=== PATIENT | male | born 1975 | race Caucasian/White ===

== ENCOUNTER 2018-04-08 19:27 | Outpatient (CLI) | payer MEDICAID | END 2018-04-08 19:28 | disposition critical access hospital (66) | LOC: EMS 19:27 | PROVIDERS: ATTEND Surgery | DX: R41.82 Altered mental status, unspecified (principal); R53.1 Weakness; R53.83 Other fatigue | CPT/HCPCS: A0425; A0427 ==

== ENCOUNTER 2018-04-08 19:54 | Emergency (ER) | payer MEDICAID ==
--- NOTE | 2018-04-08 20:38 | ED Physician Documentation ---
PD HPI SYNCOPE - Stated complaint Stated Complaint: SYNCOPE - Chief complaint Chief Complaint: Neuro - History obtained from History obtained from: Patient, EMS - History of Present Illness Timing - onset: Unknown Associated symptoms: Unknown Contributing factors: Unknown Pain level now: 0 Recently seen: Emergency Dept - Additional information Additional information: BIBA after neighbor called 911 due to patient had apparently been mowing laws but noted to be passed out on his lawn. Patient cannot contribute meaningfully to H+P/ROS due to AMS Review of Systems Constitutional: reports: Fever, Chills, Weight Loss Eyes: reports: Loss of vision Cardiac: reports: Reviewed and negative Respiratory: reports: Reviewed and negative GI: reports: Reviewed and negative Neurologic: reports: Headache, Head injury (uncertainy), LOC (uncertain). denies: Focal weakness, Numbness PD PAST MEDICAL HISTORY - Past Medical History Past Medical History: Yes GI: Crohn's disease - Past Surgical History Past Surgical History: Yes General: Splenectomy - Present Medications Home Medications: Ambulatory Orders Medication Instructions Recorded Confirmed No Known Home Medications [No 04/08/18 04/08/18 Known Home Medications] - Allergies Allergies/Adverse Reactions: Allergies Allergy/AdvReac Type Severity Reaction Status Date / Time No Known Drug Allergies Allergy Verified 04/08/18 20:04 - Social History Does the pt smoke?: No Smoking Status: Never smoker Does the pt drink ETOH?: No Does the pt have substance abuse?: No - Immunizations Immunizations are current?: Yes - POLST Patient has POLST: No PD ED PE NORMAL - Vitals Vital signs reviewed: Yes - General General: Alert and oriented X 3, No acute distress, Well developed/nourished - HEENT HEENT: PERRL, EOMI, Moist mucous membranes, Pharynx benign, Dentition benign - Neck Neck: Supple, no meningeal sign - Cardiac Cardiac: RRR, No murmur - Respiratory Respiratory: No respiratory distress, Clear bilaterally - Abdomen Abdomen: Normal bowel sounds, Soft, Non tender, Non distended - Back Back: No CVA TTP - Derm Derm: Normal color, Warm and dry - Extremities Extremities: No edema - Neuro Neuro: Alert and oriented X 3, No motor deficit, No sensory deficit Eye Opening: To Voice Motor: Obeys Commands Verbal: Oriented GCS Score: 14 Results - Vitals Vitals: Oxygen O2 Source Room air - Labs Labs: Laboratory Tests 04/08/18 04/08/18 04/08/18 20:46 20:46 21:35 WBC 10.0 RBC 4.54 L Hgb 12.9 L Hct 39.3 L MCV 86.4 MCH 28.4 MCHC 32.9 RDW 13.8 Plt Count 352 MPV 8.9 Neut # (Auto) 4.3 Lymph # (Auto) 4.4 H [place] # (Auto) 0.8 Eos # (Auto) 0.5 Baso # (Auto) 0.1 Absolute Nucleated RBC 0.01 Nucleated RBC % 0.1 Sodium 137 Potassium 4.3 Chloride 102 Carbon Dioxide 28 Anion Gap 7.0 BUN 21 H Creatinine 1.0 Estimated GFR (MDRD) 83 L Glucose 88 Calcium 9.2 Urine Opiates Screen NEGATIVE Ur Oxycodone Screen NEGATIVE Urine Methadone Screen POSITIVE H Ur Propoxyphene Screen NEGATIVE Ur Barbiturates Screen NEGATIVE Ur Tricyclics Screen POSITIVE H Ur Phencyclidine Scrn NEGATIVE Ur Amphetamine Screen NEGATIVE U Methamphetamines Scrn NEGATIVE U Benzodiazepines Scrn POSITIVE H Urine Cocaine Screen NEGATIVE U Cannabinoids Screen POSITIVE H Ethyl Alcohol < 5.0 PD MEDICAL DECISION MAKING - ED course Complexity details: reviewed old records, reviewed results, re-evaluated patient , considered differential, d/w patient ED course: Held in ED overnight, and he became increasingly awake, alert, and conversant with appropriate answers. he says he has h/o multiple head injuries, and be believed his syncope and AMS, which also occurred last month, are related to this repeated head trauma. no evidence of acute head, appropriate for outpatient f/u (says he is calling neuro tomorrow). - Sepsis Event Vital Signs: Oxygen O2 Source Room air Departure - Departure Disposition: 01 Home, Self Care Clinical Impression: Altered mental status Condition: Good Instructions: ED Altered Loc, ED Fainting Unkn Cause Comments: Follow up with neurology as discussed. Forms: Activity restrictions Discharge Date/Time: 04/09/18 05:09
[2018-04-08 21:15] LABS: BASOPHILS # (AUTO) 0.1 10^3/uL (0.0-0.1); BASOPHILS % (AUTO) 0.8 %; EOSINOPHILS # (AUTO) 0.5 10^3/uL (0.0-0.7); EOSINOPHILS % (AUTO) 5.2 %; HGB - HEMOGLOBIN 12.9 g/dL (14.0-18.0); LYMPHOCYTES # (AUTO) 4.4 10^3/uL (1.5-3.5); MEAN CORPUSCULAR HEMOGLOBIN 28.4 pg (27.0-31.0); MEAN CORPUSCULAR HGB CONC 32.9 g/dL (32.0-36.0); MEAN CORPUSCULAR VOLUME 86.4 fL (80.0-94.0); MEAN PLATELET VOLUME 8.9 fL (7.4-11.4); MONOCYTES # (AUTO) 0.8 10^3/uL (0.0-1.0); MONOCYTES % (AUTO) 7.6 %; NEUTROPHILS # (AUTO) 4.3 10^3/uL (1.5-6.6); NEUTROPHILS % (AUTO) 42.4 %; PLT - PLATELET COUNT 352 10^3/uL (130-450); RED BLOOD COUNT 4.54 10^6/uL (4.70-6.10); RED CELL DISTRIBUTION WIDTH 13.8 % (12.0-15.0)
[2018-04-08 21:22] LABS: BUN - BLOOD UREA NITROGEN 21 mg/dL (6-20); CALCIUM 9.2 mg/dL (8.5-10.3); CARBON DIOXIDE - CO2 28 mmol/L (21-32); CHLORIDE 102 mmol/L (101-111); GFR - MDRD 83 (>89); GLUCOSE 88 mg/dL (70-100); SODIUM 137 mmol/L (135-145)
[2018-04-08] MEDS ORDERED: SODIUM CHLORIDE 0.9% 1,000 ML IV STA (21:47)
[2018-04-08 21:51] LABS: MUDS CUTOFF CONCENTRATIONS CUTOFF CONC BELOW:
--- NOTE | 2018-04-08 21:54 | CT Report ---
Procedure Date: 04/08/2018 Accession Number: [id number] / [id number] Procedure: CT - Head W/O CPT Code: FULL RESULT: EXAM: CT HEAD EXAM DATE: 04/08/2018 09:20 PM. CLINICAL HISTORY: Altered mental status. Syncope. COMPARISON: None. TECHNIQUE: Multiaxial CT images were obtained from the foramen magnum to the vertex. Reformats: Coronal. IV contrast: None. In accordance with CT protocol optimization, one or more of the following dose reduction techniques were utilized for this exam: automated exposure control, adjustment of mA and/or KV based on patient size, or use of iterative reconstructive technique. FINDINGS: Parenchyma: No intraparenchymal hemorrhage. No evidence of mass, midline shift, or CT findings of infarction. Choi-white differentiation is distinct. Extraaxial Spaces: Normal for age. No subdural or epidural collections identified. Ventricles: Normal in size and position. Sinuses and Orbits: Imaged paranasal sinuses, orbits, and mastoids show no significant abnormality. Bones: No evidence of fracture or calvarial defect. Other: None. IMPRESSION: Normal head CT. RADIA
[2018-04-08 22:13] LABS: AMPHETAMINE SCREEN,URINE NEGATIVE (NEGATIVE); BENZODIAZEPINES SCREEN, URINE POSITIVE (NEGATIVE); COCAINE SCREEN URINE NEGATIVE (NEGATIVE); METHADONE SCREEN, URINE POSITIVE (NEGATIVE); METHAMPHETAMINES SCREEN, URINE NEGATIVE (NEGATIVE); OPIATE SCREEN, URINE NEGATIVE (NEGATIVE); OXYCODONE SCREEN, URINE NEGATIVE (NEGATIVE); PROPOXYPHENE SCREEN, URINE NEGATIVE (NEGATIVE); TRICYCLIC ANTIDEPRESSANT,URINE POSITIVE (NEGATIVE)
[2018-04-09 04:44] VITALS: BP 110/79
== END 2018-04-09 05:09 | disposition home or self-care (01) ==
LOC: EDUNIT# → ED 19:54
DX: R41.82 Altered mental status, unspecified (principal); R55 Syncope and collapse
CPT/HCPCS: 36415; 70450; 80048; 80306; 80320; 85025; 96360; 99283; 99284

== ENCOUNTER 2020-08-17 21:54 | Outpatient (CLI) | payer MEDICAID | END 2020-08-17 21:55 | disposition critical access hospital (66) | LOC: EMS 21:54 | PROVIDERS: ATTEND Surgery | DX: R46.4 Slowness and poor responsiveness (principal) | CPT/HCPCS: A0425; A0427; A0999 ==

== ENCOUNTER 2020-08-17 22:20 | Emergency (ER) | payer MEDICAID ==
[2020-08-17 22:50] LABS: BASOPHILS # (AUTO) 0.1 10^3/uL (0.0-0.1); BASOPHILS % (AUTO) 0.6 %; EOSINOPHILS # (AUTO) 0.3 10^3/uL (0.0-0.7); HGB - HEMOGLOBIN 12.5 g/dL (14.0-18.0); LYMPHOCYTES # (AUTO) 3.3 10^3/uL (1.5-3.5); LYMPHOCYTES % (AUTO) 20.5 %; MEAN CORPUSCULAR HEMOGLOBIN 28.2 pg (27.0-31.0); MEAN CORPUSCULAR HGB CONC 31.6 g/dL (32.0-36.0); MEAN CORPUSCULAR VOLUME 89.2 fL (80.0-94.0); MONOCYTES # (AUTO) 1.3 10^3/uL (0.0-1.0); MONOCYTES % (AUTO) 8.3 %; NEUTROPHILS # (AUTO) 10.8 10^3/uL (1.5-6.6); NEUTROPHILS % (AUTO) 67.9 %; PLT - PLATELET COUNT 416 10^3/uL (130-450); RED BLOOD COUNT 4.44 10^6/uL (4.70-6.10); RED CELL DISTRIBUTION WIDTH 13.7 % (12.0-15.0)
--- NOTE | 2020-08-17 22:51 | ED Physician Documentation ---
PD HPI ALTERED MENTAL STATUS - Stated complaint Stated Complaint: OD/ UNRESPONSIVE - Chief complaint Chief Complaint: Neuro - History obtained from History obtained from: Patient, EMS - Additional information Additional information: Patient is brought to the emergency department by EMS after reportedly using trazodone at home and then becoming very drowsy. Medics state that they are not sure what time the patient took the trazodone; his cousin reported that Patient had taken it, but did not know an exact time. Medics estimate that it was about an hour ago. The patient apparently was eating Oreo cookies and then suddenly became unresponsive and slumped over. When medics arrived, the patient was drowsy but arousable. He has been verbal with minimal stimulation throughout transport. The patient states he does not remember taking anything in particular, but does remember eating Oreos. However, he states this is patient his cousin is the only one that was with him, so his cousin thinks he took trazodone, then he probably did. Patient vigorously denies using any injection drugs, alcohol, or any other kind of pills such as Otis. He notes he does use marijuana sometimes but does not remember using it today. Patient denies any other complaints at this time. He states he has not been ill with anything recently. Finger stick glucose in route is reported to have been normal by me dics. Review of Systems Ten Systems: 10 systems reviewed and negative Constitutional: reports: Reviewed and negative Eyes: reports: Reviewed and negative Ears: reports: Reviewed and negative Nose: reports: Reviewed and negative Throat: reports: Reviewed and negative Cardiac: reports: Reviewed and negative Respiratory: reports: Reviewed and negative GI: reports: Reviewed and negative : reports: Reviewed and negative Skin: reports: Reviewed and negative Musculoskeletal: reports: Reviewed and negative Neurologic: reports: Altered mental status Psychiatric: reports: Reviewed and negative Endocrine: reports: Reviewed and negative Immunocompromised: reports: Reviewed and negative PD PAST MEDICAL HISTORY - Past Medical History GI: Crohn's disease - Past Surgical History Past Surgical History: Yes General: Splenectomy - Present Medications Home Medications: Ambulatory Orders Medication Instructions Recorded Confirmed No Known Home Medications 04/08/18 04/08/18 - Allergies Allergies/Adverse Reactions: Allergies Allergy/AdvReac Type Severity Reaction Status Date / Time No Known Drug Allergies Allergy Verified 08/17/20 22:26 - Social History Does the pt smoke?: No Smoking Status: Never smoker Does the pt drink ETOH?: No Does the pt have substance abuse?: No - Immunizations Immunizations are current?: Yes - POLST Patient has POLST: No PD ED PE NORMAL - Vitals Vital signs reviewed: Yes - General General: No acute distress, Well developed/nourished, Other (Drowsy, but arouses to voice and answers questions appropriately.) - HEENT HEENT: Atraumatic, PERRL, EOMI, Moist mucous membranes - Neck Neck: Supple, no meningeal sign - Cardiac Cardiac: RRR, No murmur - Respiratory Respiratory: No respiratory distress, Clear bilaterally - Abdomen Abdomen: Soft, Non tender, Non distended - Derm Derm: Normal color, Warm and dry, No rash - Extremities Extremities: No deformity, No edema, No calf tenderness / cord - Neuro Neuro: Other (Patient is drowsy, but arouses easily to voice and answers questions appropriately. He is moving all 4 extremities and is grossly intact with regard to sensation.) - Psych Psych: Normal mood, Normal affect Results - Vitals Vitals: Vital Signs - 24 hr 08/17/20 08/17/20 22:26 22:49 Temperature 36.5 C Heart Rate 90 91 Respiratory 18 13 Rate Blood Pressure 158/103 H 137/100 H O2 Saturation 98 98 Oxygen O2 Source Room air PD MEDICAL DECISION MAKING - ED course Complexity details: reviewed old records, considered differential, d/w patient ED course: The patient initially was fairly drowsy upon arrival, but became increasingly alert during his stay in the emergency department. He reacted vigorously to have an IV placed, and did try to give us a urine sample, but was not able to urinate at this time. He declined to have a catheterization, and stated he just wanted to leave. The patient by this point was easily arousable and coherent, and his vital signs were stable. I did feel that he was competent to refuse further intervention or work-up, and he did have a sober ride home in the form of his grandfather. As such, the patient is deemed stable for discharge home. I discussed with him that if he is not prescribed trazodone, then he should not take it at all. If he is prescribed trazodone, then he should take it only as directed. We have discussed that if the patient has prescribed medications about which she has concerns or feels he needs a dose change, he should make an appointment to speak with his primary care physician about this. We have discussed the usual indications for return. Departure - Departure Disposition: 01 Home, Self Care Clinical Impression: Altered level of consciousness, Substance abuse Condition: Stable Instructions: ED Drug Abuse General Comments: You have refused to allow us to collect urine on you, which would help us to know what exactly may have taken. However, since you have been awake and vigorously talking and responding since you have been here, and since your vital signs have been stable, there is no evidence of a serious overdose of any substance. Please take only the medications that are prescribed for you. If trazodone is prescribed, then please take it only as prescribed and do not take extra. If you feel you need dose changes on any of your medications, then please speak with your primary care physician about this.
[2020-08-17 23:05] LABS: ALBUMIN 3.9 g/dL (3.2-5.5); BILIRUBIN,TOTAL 0.2 mg/dL (0.2-1.0); CALCIUM 9.4 mg/dL (8.5-10.3); CREATININE 0.9 mg/dL (0.6-1.2); TOTAL PROTEIN 7.9 g/dL (6.7-8.2)
[2020-08-17 23:37] VITALS: BP 143/81
== END 2020-08-18 00:03 | disposition home or self-care (01) ==
LOC: EDUNIT# → ED 22:20
DX: R40.4 Transient alteration of awareness (principal)
CPT/HCPCS: 36415; 80053; 80320; 85025; 99284

== ENCOUNTER 2021-02-09 08:07 | Outpatient (CLI) | payer MEDICAID | END 2021-02-09 08:08 | disposition critical access hospital (66) | LOC: EMS 08:07 | DX: Z76.89 Persons encountering health services in other specified circumstances (principal) | CPT/HCPCS: A0425; A0429; A0999 ==

== ENCOUNTER 2021-02-09 08:39 | Emergency (ER) | payer MEDICAID ==
--- NOTE | 2021-02-09 08:48 | ED Physician Documentation ---
PD HPI ALTERED MENTAL STATUS - Stated complaint Stated Complaint: GLF - History obtained from History obtained from: Patient, EMS - History of Present Illness Timing - onset: Today, Unknown (he was spotted face down in parking lot a post office in [place] and EMS called. They found him responsive to brisk tactile stimulus. Adequate vitals/sats. Brought here for eval. Unknwon if fell. No outward signs of trauma.) Timing - duration: Other (unknown) Timing - details: Still present in ED Quality / character: Less responsive (deeply somnolent. Unlabored breathing.) Associated symptoms: No: Dyspnea, Focal weakness, Seizure activity Contributing factors: Substance abuse (history of IV drug use, no fresh track noted. he had bottle of Alprazolam from [place] that had several tablets in it, and also other pills in there that [facility] look up were Clonidine.). No: Diabetic Basline status: Alert and oriented X 3 Recently seen: Not recently seen (no recent visits to our ER.) Review of Systems Unable to obtain: Unresponsive, AMS PD PAST MEDICAL HISTORY - Past Medical History Cardiovascular: None Respiratory: None GI: Crohn's disease - Past Surgical History Past Surgical History: Yes General: Splenectomy - Present Medications Home Medications: Ambulatory Orders Medication Instructions Recorded Confirmed Doxepin [SINEquan] 75 mg PO QPM 02/09/21 02/09/21 cloNIDine [Catapres] 1 tab PO DAILY 02/09/21 02/09/21 - Allergies Allergies/Adverse Reactions: Allergies Allergy/AdvReac Type Severity Reaction Status Date / Time No Known Drug Allergies Allergy Verified 02/09/21 08:49 - Living Situation Living Situation: reports: With friend(s) - Social History Does the pt smoke?: No Smoking Status: Never smoker Does the pt drink ETOH?: No Does the pt have substance abuse?: No - Immunizations Immunizations are current?: Yes - POLST Patient has POLST: No PD ED PE NORMAL - Vitals Vital signs reviewed: Yes - General General: No acute distress, Well developed/nourished. No: Alert and oriented X 3 (very somnolent and rousable to verbal and tactile. When rested, having slow resp rate 8-10. ) - HEENT HEENT: Atraumatic - Neck Neck: Supple, no meningeal sign, No adenopathy - Cardiac Cardiac: No murmur. No: RRR (bradycardic and regular. ) - Respiratory Respiratory: No respiratory distress, Clear bilaterally - Abdomen Abdomen: Soft, Non distended. No: Normal bowel sounds (diminished) - Derm Derm: Normal color, Warm and dry - Extremities Extremities: No deformity, No tenderness to palpate - Neuro Neuro: No motor deficit, No sensory deficit, Other (normal reflexes in extremities. ) Results - Vitals Vitals: Vital Signs - 24 hr 02/09/21 02/09/21 02/09/21 08:42 09:00 09:17 Temperature 36.5 C Heart Rate 50 L 44 L 44 L Respiratory 16 10 L 9 L Rate Blood Pressure 95/77 108/73 100/75 O2 Saturation 93 99 96 02/09/21 02/09/21 02/09/21 09:23 09:31 09:45 Temperature Heart Rate 53 L 55 L 73 Respiratory 19 13 11 L Rate Blood Pressure 102/77 116/78 118/79 O2 Saturation 100 100 100 02/09/21 02/09/21 02/09/21 10:16 10:30 11:00 Temperature Heart Rate 51 L 92 44 L Respiratory 15 10 L 15 Rate Blood Pressure 102/76 126/80 122/79 O2 Saturation 97 98 98 02/09/21 02/09/21 02/09/21 11:30 12:28 12:30 Temperature Heart Rate 44 L 45 L 42 L Respiratory 14 12 10 L Rate Blood Pressure 125/82 H 123/83 H 122/82 H O2 Saturation 99 100 99 02/09/21 02/09/21 13:00 13:30 Temperature Heart Rate 41 L 56 L Respiratory 10 L 18 Rate Blood Pressure 127/81 H 132/99 H O2 Saturation 99 99 Oxygen O2 Source Room air Oxygen Flow Rate 2 - EKG (time done) 14:32 Rate: Rate (enter#) (6) Rhythm: Sinus bradycardia [place]: Normal Intervals: Normal CO QRS: Normal Ischemia: Normal ST segments. No: ST elevation c/w ischemia, ST depression - Labs Labs: Laboratory Tests 02/09/21 02/09/21 02/09/21 08:52 08:52 13:48 WBC 9.8 RBC 4.60 L Hgb 12.6 L Hct 40.2 L MCV 87.4 MCH 27.4 MCHC 31.3 L RDW 14.1 Plt Count 421 MPV 9.5 Neut # (Auto) 5.3 Lymph # (Auto) 3.3 [place] # (Auto) 0.7 Eos # (Auto) 0.3 Baso # (Auto) 0.1 Absolute Nucleated RBC 0.00 Nucleated RBC % 0.0 Sodium 135 Potassium 4.5 Chloride 97 L Carbon Dioxide 28 Anion Gap 10.0 BUN 33 H Creatinine 1.9 H Estimated GFR (MDRD) 39 L Glucose 101 H Calcium 9.5 Magnesium 2.5 Total Bilirubin 0.6 AST 53 H ALT 20 Alkaline Phosphatase 57 Total Protein 8.4 H Albumin 4.5 Globulin 4.0 Albumin/Globulin Ratio 1.2 Lipase 18 L Urine Color YELLOW Urine Clarity CLEAR Urine pH 5.5 Ur Specific [place] >=1.030 H Urine Protein TRACE Urine Glucose (UA) NEGATIVE Urine Ketones NEGATIVE Urine Occult Blood NEGATIVE Urine Nitrite NEGATIVE Urine Bilirubin NEGATIVE Urine Urobilinogen 0.2 (NORMAL) Ur Leukocyte Esterase NEGATIVE Ur Microscopic Review NOT INDICATED Urine Culture Comments NOT INDICATED Salicylates < 6.0 Urine Opiates Screen POSITIVE H Ur Oxycodone Screen NEGATIVE Urine Methadone Screen POSITIVE H Ur Propoxyphene Screen NEGATIVE Acetaminophen < 10 L Ur Barbiturates Screen NEGATIVE Ur Tricyclics Screen POSITIVE H Ur Phencyclidine Scrn NEGATIVE Ur Amphetamine Screen NEGATIVE U Methamphetamines Scrn NEGATIVE U Benzodiazepines Scrn POSITIVE H Urine Cocaine Screen POSITIVE H U Cannabinoids Screen NEGATIVE Ethyl Alcohol < 5.0 - Rads (name of study) head CT Radiology: Prelim report reviewed (no acute injuries), See rad report cervical CT Radiology: Prelim report reviewed (no fractures), See rad report PD MEDICAL DECISION MAKING - ED course Complexity details: re-evaluated patient (he rested and had had slow resp rate though CO2 monitor was reasonable. However, concerned about slow/shallow resps and gave Romazicon which promptly allowed him more alert and talkative, without seizure/withdrawal symptoms. He got sleepy again after it wore off in 45 min, but not as deeply. ), considered differential (apparent medication overdose, though found face down in parking lot so consider trauma/fall as well. Get CT head/neck, and also labs. ), d/w patient ED course: Patient watched another few hours in ER, was easily rousable to verbal/light tactile, and had adequate resp rate and depth. He subsequently awoke fully and was able to walk to bathroom steadily and was doing well. He was able to call friend for a ride. He declined need for Social Work nor drug rehab/etc. Departure - Departure Disposition: 01 Home, Self Care Clinical Impression: Medication overdose Qualifiers: Encounter type: initial encounter Injury intent: undetermined intent Qualified Code(s): T50.904A - Poisoning by unspecified drugs, medicaments and biological substances, undetermined, initial encounter Altered mental status Qualifiers: Altered mental status type: somnolence Qualified Code(s): R40.0 - Somnolence Condition: Stable Record reviewed to determine appropriate education?: Yes Instructions: ED Overdose Accidental Comments: Do not take any nonprescribed medications and only take medications in moderation. Avoid recreational drugs. Stay well-hydrated through the day today. Recheck of problems. Discharge Date/Time: 02/09/21 14:44
[2021-02-09] MEDS ORDERED: SODIUM CHLORIDE 0.9% 1,000 ML IV STA ×2 (08:50→10:20)
[2021-02-09 09:18] LABS: BASOPHILS # (AUTO) 0.1 10^3/uL (0.0-0.1); BASOPHILS % (AUTO) 0.5 %; EOSINOPHILS # (AUTO) 0.3 10^3/uL (0.0-0.7); EOSINOPHILS % (AUTO) 3.5 %; HCT - HEMATOCRIT 40.2 % (42.0-52.0); HGB - HEMOGLOBIN 12.6 g/dL (14.0-18.0); LYMPHOCYTES # (AUTO) 3.3 10^3/uL (1.5-3.5); LYMPHOCYTES % (AUTO) 34.1 %; MEAN CORPUSCULAR HEMOGLOBIN 27.4 pg (27.0-31.0); MEAN CORPUSCULAR HGB CONC 31.3 g/dL (32.0-36.0); MEAN CORPUSCULAR VOLUME 87.4 fL (80.0-94.0); MEAN PLATELET VOLUME 9.5 fL (7.4-11.4); MONOCYTES # (AUTO) 0.7 10^3/uL (0.0-1.0); MONOCYTES % (AUTO) 7.1 %; NEUTROPHILS # (AUTO) 5.3 10^3/uL (1.5-6.6); NEUTROPHILS % (AUTO) 54.5 %; PLT - PLATELET COUNT 421 10^3/uL (130-450); RED CELL DISTRIBUTION WIDTH 14.1 % (12.0-15.0); WHITE BLOOD COUNT 9.8 x10^3/uL (4.8-10.8)
[2021-02-09] MEDS ORDERED: FLUMAZENIL 0.1 MG/1 ML 5 ML MDV IVP STA (09:18)
[2021-02-09 09:30] LABS: ACETAMINOPHEN < 10 ug/mL (10-30); ALBUMIN 4.5 g/dL (3.2-5.5); ALBUMIN/GLOBULIN RATIO 1.2 (1.0-2.2); ALKALINE PHOSPHATASE 57 IU/L (42-121); ALT ALANINE AMINOTRANSFERASE 20 IU/L (10-60); AST ASPARTATE AMINOTRANSFERASE 53 IU/L (10-42); BILIRUBIN,TOTAL 0.6 mg/dL (0.2-1.0); BUN - BLOOD UREA NITROGEN 33 mg/dL (6-20); CALCIUM 9.5 mg/dL (8.5-10.3); CARBON DIOXIDE - CO2 28 mmol/L (21-32); CHLORIDE 97 mmol/L (101-111); CREATININE 1.9 mg/dL (0.6-1.2); ETOH - ETHANOL < 5.0 mg/dL; GFR - MDRD 39 (>89); GLUCOSE 101 mg/dL (70-100); LIPASE 18 U/L (22-51); MAGNESIUM 2.5 mg/dL (1.7-2.8); POTASSIUM 4.5 mmol/L (3.5-5.0); SALICYLATE < 6.0 mg/dL; SODIUM 135 mmol/L (135-145); TOTAL PROTEIN 8.4 g/dL (6.7-8.2)
--- NOTE | 2021-02-09 10:41 | CT Report ---
PROCEDURE: HEAD WO INDICATIONS: altered mentation; found on ground; unknown injury TECHNIQUE: Noncontrast 4.5 mm thick angled axial sections acquired from the foramen magnum to the vertex. For r adiation dose reduction, the following was used: automated exposure control, adjustment of mA and/or kV according to patient size. COMPARISON: 04/08/1980 FINDINGS: Image quality: Excellent. CSF spaces: Basal cisterns are patent. No extra-axial fluid collections. Ventricles are normal in size and shape. Brain: No midline shift. No intracranial masses or hemorrhage. Choi-white matter interface is norm al. Skull and face: Calvarium and visualized facial bones are intact, without suspicious lesions. Multi ple foci of gas noted within the pterygoid soft tissues of the face adjacent to the maxillary sinus a long within the temporal region on the left. In addition there is a punctate foci of gas noted adjace nt to the left cavernous sinus. Sinuses: Opacification of multiple ethmoid air cells. Mucosal thickening in the left sphenoid sinus. No air-fluid levels. Mastoid air cells are clear. IMPRESSION: No evidence of an acute intracranial abnormality. Punctate foci of gas within the left-sided soft tissues as well as likely single punctate foci of gas noted adjacent to the left cavernous sinus. Recommend clinical correlation for facial trauma. Paranasal sinus mucosal disease. Reviewed by: Andrea Worley DO on 02/09/2021 9:40 AM LOI Approved by: Andrea Worley DO on 02/09/2021 9:40 AM LOI Station ID: [id number]
--- NOTE | 2021-02-09 10:54 | CT Report ---
PROCEDURE: CERVICAL SPINE WO INDICATIONS: LOC/found down on ground; unknown injury TECHNIQUE: Noncontrast 3 mm thick sections acquired from the skull base to the T4 level. Sagittal and coronal r eformats were then constructed. For radiation dose reduction, the following was used: automated exp osure control, adjustment of mA and/or kV according to patient size. COMPARISON: Same-day head CT as well as CT head dated 04/08/2018. FINDINGS: Image quality: Excellent. Bones: No fractures or dislocations. Visualized superior ribs are intact. Minimal degenerative dena nges of C3-C4 with uncovertebral joint hypertrophy. No significant canal or neural foraminal stenosis . Posterior disc calcification noted at C5-C6. Soft tissues: Prevertebral soft tissues are normal in thickness. No paravertebral hematomas. No ap ical pneumothoraces. Multiple foci of gas are noted within the left facial soft tissues as well as a djacent to the left vertebral canal and within the right neck along with the additional foci likely d ependent within the right internal jugular vein. IMPRESSION: No acute fracture or traumatic subluxation. Multiple foci of gas noted throughout the left facial soft tissues as well as the right neck and like ly within the right internal jugular vein. Recommend correlation for soft tissue and facial bone inju vane as well as recent venous access. Reviewed by: Andrea Worley DO on 02/09/2021 9:53 AM LOI Approved by: Andrea Worley DO on 02/09/2021 9:53 AM LOI Station ID: [id number]
[2021-02-09 13:49] LABS: BILIRUBIN,URINE NEGATIVE (NEGATIVE); GLUCOSE, URINE (UA) NEGATIVE (NEGATIVE); KETONES,URINE (UA) NEGATIVE (NEGATIVE); LEUKOCYTE ESTERASE, URINE NEGATIVE (NEGATIVE); MUDS CUTOFF CONCENTRATIONS CUTOFF CONC BELOW:; NITRITE,URINE NEGATIVE (NEGATIVE); OCCULT BLOOD,URINE NEGATIVE (NEGATIVE); PH,URINE 5.5 PH (5.0-7.5); PROTEIN,URINE TRACE mg/dL (NEGATIVE); UROBILINOGEN,URINE 0.2 (NORMAL) E.U./dL (NORMAL)
[2021-02-09 13:50] LABS: CLARITY,URINE CLEAR (CLEAR)
[2021-02-09 14:03] LABS: BENZODIAZEPINES SCREEN, URINE POSITIVE (NEGATIVE); COCAINE SCREEN URINE POSITIVE (NEGATIVE); METHADONE SCREEN, URINE POSITIVE (NEGATIVE); OPIATE SCREEN, URINE POSITIVE (NEGATIVE); TRICYCLIC ANTIDEPRESSANT,URINE POSITIVE (NEGATIVE)
[2021-02-09 14:04] LABS: AMPHETAMINE SCREEN,URINE NEGATIVE (NEGATIVE); BARBITURATE SCREEN,UR NEGATIVE (NEGATIVE); METHAMPHETAMINES SCREEN, URINE NEGATIVE (NEGATIVE); OXYCODONE SCREEN, URINE NEGATIVE (NEGATIVE); PROPOXYPHENE SCREEN, URINE NEGATIVE (NEGATIVE); THC CANNABINOID SCREEN, URINE NEGATIVE (NEGATIVE)
[2021-02-09 14:05] VITALS: BP 132/99
== END 2021-02-09 14:44 | disposition home or self-care (01) ==
LOC: EDUNIT# → ED 08:39
DX: T50.904A Poisoning by unspecified drugs, medicaments and biological substances, undetermined, initial encounter (principal); R40.0 Somnolence; I25.2 Old myocardial infarction; R00.1 Bradycardia, unspecified
CPT/HCPCS: 36415; 80053; 80306; 80307; 80320; 80329; 81001; 81003; 83690; 83735; 85025; 87086; 93005; 96361; 96374; 99281

== ENCOUNTER 2022-02-22 16:35 | Outpatient (CLI) | payer MEDICAID | END 2022-02-22 16:36 | disposition EMS.NT | LOC: EMS 16:35 | DX: R46.89 Other symptoms and signs involving appearance and behavior (principal) ==

== ENCOUNTER 2022-09-08 20:26 | Emergency (ER) | payer MEDICAID ==
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
[2022-09-08] MEDS ORDERED: OLANZapine 10 MG VIAL IM ONE (21:35)
[2022-09-08 21:52] LABS: BASOPHILS % (AUTO) 0.5 %; EOSINOPHILS % (AUTO) 3.9 %; HCT - HEMATOCRIT 37.6 % (42.0-52.0); HGB - HEMOGLOBIN 12.3 g/dL (14.0-18.0); MEAN CORPUSCULAR HEMOGLOBIN 27.2 pg (27.0-31.0); MEAN CORPUSCULAR HGB CONC 32.7 g/dL (32.0-36.0); MONOCYTES % (AUTO) 8.6 %; NEUTROPHILS % (AUTO) 43.7 %; RED BLOOD COUNT 4.53 10^6/uL (4.70-6.10); WHITE BLOOD COUNT 10.1 x10^3/uL (4.8-10.8)
[2022-09-08 21:55] LABS: ACETAMINOPHEN < 10 ug/mL (10-30); ALBUMIN 4.1 g/dL (3.2-5.5); ALBUMIN/GLOBULIN RATIO 1.5 (1.0-2.2); ALKALINE PHOSPHATASE 51 IU/L (42-121); ALT ALANINE AMINOTRANSFERASE 15 IU/L (10-60); AST ASPARTATE AMINOTRANSFERASE 35 IU/L (10-42); BILIRUBIN,TOTAL 0.5 mg/dL (0.2-1.0); BUN - BLOOD UREA NITROGEN 19 mg/dL (6-20); CALCIUM 9.3 mg/dL (8.5-10.3); CARBON DIOXIDE - CO2 29 mmol/L (21-32); CHLORIDE 100 mmol/L (101-111); ETOH - ETHANOL < 5.0 mg/dL; GLUCOSE 85 mg/dL (70-100); LIPASE 22 U/L (22-51); POTASSIUM 4.4 mmol/L (3.5-5.0); SALICYLATE < 6.0 mg/dL; SODIUM 136 mmol/L (135-145); TOTAL PROTEIN 6.9 g/dL (6.7-8.2)
[2022-09-08 22:05] LABS: GFR - MDRD 81 (>89)
[2022-09-08 22:11] LABS: ABNORMAL LYMPHS % (MANUAL) 0 %; BAND NEUTROPHILS % (MANUAL) 0 %
[2022-09-08 22:14] LABS: DIFFERENTIAL COMMENT MANUAL DIFFERENTIAL; EOSINOPHILS # (MANUAL) 0.3 10^3/uL (0-0.7); LYMPHOCYTES # (MANUAL) 4.9 10^3/uL (1.5-3.5); LYMPHOCYTES % (MANUAL) 44 %; MONOCYTES # (MANUAL) 0.7 10^3/uL (0.0-1.0); NEUTROPHILS # (MANUAL) 4.1 10^3/uL (1.5-6.6); PLATELET ESTIMATE, MANUAL NORMAL (130-450,000) (NORMAL); PLATELET MORPHOLOGY PLATELET CLUMPING (NORMAL); RBC MORPHOLOGY (MULTIPLE) NORMAL APPEARANCE (NORMAL); REACTIVE LYMPHS % (MANUAL) 5 %
[2022-09-08 22:30] LABS: B. PARAPERTUSSIS- RESP PCR PAN NOT DETECTED; B. PERTUSSIS- RESP PCR PANEL NOT DETECTED; C. PNEUMONIAE- RESP PCR PANEL NOT DETECTED; CORONAVIRUS 229E-RESP PCR NOT DETECTED; CORONAVIRUS HKU1-RESP PCR NOT DETECTED; CORONAVIRUS NL63-RESP PCR NOT DETECTED; CORONAVIRUS OC43-RESP PCR NOT DETECTED; HUMAN METAPNEUMOVIRUS NOT DETECTED; INFLUENZA A- RESP PCR PANEL NOT DETECTED; INFLUENZA B - RESP PCR PANEL NOT DETECTED; M. PNEUMONIAE- RESP PCR PANEL NOT DETECTED; PARAINFLUENZA VIRUS 1 NOT DETECTED; PARAINFLUENZA VIRUS 2 NOT DETECTED; PARAINFLUENZA VIRUS 3 NOT DETECTED; PARAINFLUENZA VIRUS 4 NOT DETECTED; RHINOVIRUS/ENTEROVIRUS NOT DETECTED; RSV- RESP PCR PANEL NOT DETECTED; SARS-CoV-2 -RESP PCR PANEL NOT DETECTED
--- NOTE | 2022-09-08 23:06 | CT Report ---
PROCEDURE: HEAD WO INDICATIONS: Altered mental status TECHNIQUE: Noncontrast 4.5 mm thick angled axial sections acquired from the foramen magnum to the vertex. For r adiation dose reduction, the following was used: automated exposure control, adjustment of mA and/or kV according to patient size. COMPARISON: None at 1621. FINDINGS: Image quality: Excellent. CSF spaces: Basal cisterns are patent. No extra-axial fluid collections. Ventricles are normal in size and shape. Brain: No midline shift. No intracranial masses or hemorrhage. Choi-white matter interface is norm al. Skull and face: Calvarium and visualized facial bones are intact, without suspicious lesions. Sinuses: Visualized sinuses and mastoids predominantly clear. IMPRESSION: No acute intracranial abnormality. Reviewed by: Serjio Fraire MD on 09/08/2022 11:05 PM PST Approved by: Serjio Fraire MD on 09/08/2022 11:05 PM PST Station ID: [id number]
--- NOTE | 2022-09-08 23:08 | CT Report ---
PROCEDURE: CERVICAL SPINE WO INDICATIONS: ams TECHNIQUE: Noncontrast 3 mm thick sections acquired from the skull base to the T4 level. Sagittal and coronal r eformats were then constructed. For radiation dose reduction, the following was used: automated exp osure control, adjustment of mA and/or kV according to patient size. COMPARISON: 02/09/2021 FINDINGS: Image quality: Excellent. Bones: No fractures or dislocations. Visualized superior ribs are intact. Soft tissues: Prevertebral soft tissues are normal in thickness. No paravertebral hematomas. No ap ical pneumothoraces. IMPRESSION: No acute cervical spine injury demonstrated. Reviewed by: Serjio Fraire MD on 09/08/2022 11:06 PM PST Approved by: Serjio Fraire MD on 09/08/2022 11:06 PM PST Station ID: [id number]
--- NOTE | 2022-09-09 04:57 | ED Physician Documentation ---
ED Addendum - Addendum Addendum: 09/09/22 04:55 Patient endorsed to me by Dr. Jefferson at shift change at 10 PM. No acute events overnight. Lab work and CT unremarkable. Patient clinically sober at 5 AM, ambulatory to bathroom without difficulty, alert and oriented. Advised to consider drug and alcohol rehabilitation. Plan to follow-up with PCP. Return precautions given. 09/09/22 04:56 Impression 1. alcohol abuse 2. polysubstance abuse 09/09/22 04:57 Disposition home condition good
[2022-09-09 04:58] VITALS: BP 102/69
== END 2022-09-09 04:58 | disposition home or self-care (01) ==
LOC: EDUNIT# → ED 20:26
DX: R41.82 Altered mental status, unspecified (principal); F19.10 Other psychoactive substance abuse, uncomplicated; F10.10 Alcohol abuse, uncomplicated; Y90.0 Blood alcohol level of less than 20 mg/100 ml; Z20.822 Contact with and (suspected) exposure to COVID-19
CPT/HCPCS: 36415; 80053; 80307; 80320; 80329; 83690; 84443; 85025; 87633; 93005; 96372; 99281; 99284

== ENCOUNTER → 2022-09-08 | Outpatient (CLI) | payer MEDICAID | END | disposition critical access hospital (66) | LOC: EMS 20:02 | DX: R41.0 Disorientation, unspecified (principal); E16.2 Hypoglycemia, unspecified; Z72.89 Other problems related to lifestyle | CPT/HCPCS: A0425; A0429; A0999 ==

== ENCOUNTER 2022-10-26 22:31 | Outpatient (CLI) | payer MEDICAID | END 2022-10-26 22:32 | disposition critical access hospital (66) | LOC: EMS 22:31 | DX: R41.0 Disorientation, unspecified (principal); R61 Generalized hyperhidrosis; R26.81 Unsteadiness on feet; R53.83 Other fatigue | CPT/HCPCS: A0425; A0429; A0999 ==

== ENCOUNTER 2022-10-26 22:55 | Emergency (ER) | payer MEDICAID ==
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
[2022-10-26] MEDS ORDERED: SODIUM CHLORIDE 0.9% 1,000 ML IV STA (23:42)
--- NOTE | 2022-10-26 23:43 | CT Report ---
PROCEDURE: HEAD WO INDICATIONS: poss head inj, altered TECHNIQUE: Noncontrast 4.5 mm thick angled axial sections acquired from the foramen magnum to the vertex. For r adiation dose reduction, the following was used: automated exposure control, adjustment of mA and/or kV according to patient size. COMPARISON: Head CT 09/08/2022. FINDINGS: Image quality: Excellent. CSF spaces: Basal cisterns are patent. No extra-axial fluid collections. Ventricles are normal in size and shape. Brain: No intracranial hemorrhage, mass, or mass effect. Choi-white matter interface appears preser aminata. Skull and face: Calvarium and visualized facial bones are intact, without suspicious lesions. Sinuses: Visualized sinuses and mastoids are clear. IMPRESSION: 1. No acute intracranial abnormality. Reviewed by: Juan Manuel Irizarry MD on 10/26/2022 11:42 PM [facility] Approved by: Juan Manuel Irizarry MD on 10/26/2022 11:42 PM [facility] Station ID: [id number]
--- NOTE | 2022-10-26 23:51 | CT Report ---
PROCEDURE: CERVICAL SPINE WO INDICATIONS: poss head inj, altered TECHNIQUE: Noncontrast 3 mm thick sections acquired from the skull base to the T4 level. Sagittal and coronal r eformats were then constructed. For radiation dose reduction, the following was used: automated exp osure control, adjustment of mA and/or kV according to patient size. COMPARISON: None. FINDINGS: Image quality: Excellent. Bones: No fractures or subluxation. Visualized superior ribs are intact. Soft tissues: Prevertebral soft tissues are normal in thickness. No paravertebral hematomas. No ap ical pneumothoraces. IMPRESSION: 1. No fracture or subluxation. Reviewed by: Juan Manuel Irizarry MD on 10/26/2022 11:50 PM PST Approved by: Juan Manuel Irizarry MD on 10/26/2022 11:50 PM PST Station ID: [id number]
[2022-10-26 23:53] LABS: BASOPHILS % (AUTO) 0.6 %; EOSINOPHILS % (AUTO) 6.6 %; HCT - HEMATOCRIT 40.4 % (42.0-52.0); HGB - HEMOGLOBIN 12.5 g/dL (14.0-18.0); LYMPHOCYTES % (AUTO) 33.7 %; MEAN CORPUSCULAR HEMOGLOBIN 27.4 pg (27.0-31.0); MEAN CORPUSCULAR HGB CONC 30.9 g/dL (32.0-36.0); MEAN CORPUSCULAR VOLUME 88.6 fL (80.0-94.0); MEAN PLATELET VOLUME 10.5 fL (7.4-11.4); MONOCYTES % (AUTO) 8.6 %; NEUTROPHILS % (AUTO) 50.1 %; PLT - PLATELET COUNT 164 10^3/uL (130-450); RED BLOOD COUNT 4.56 10^6/uL (4.70-6.10); RED CELL DISTRIBUTION WIDTH 14.2 % (12.0-15.0); WHITE BLOOD COUNT 10.4 x10^3/uL (4.8-10.8)
[2022-10-27 00:09] LABS: ABNORMAL LYMPHS % (MANUAL) 0 %; ACETAMINOPHEN < 10 ug/mL (10-30); ALBUMIN 4.1 g/dL (3.2-5.5); ALBUMIN/GLOBULIN RATIO 1.1 (1.0-2.2); ALKALINE PHOSPHATASE 89 IU/L (42-121); ALT ALANINE AMINOTRANSFERASE 39 IU/L (10-60); AST ASPARTATE AMINOTRANSFERASE 90 IU/L (10-42); BILIRUBIN,TOTAL 0.4 mg/dL (0.2-1.0); BUN - BLOOD UREA NITROGEN 10 mg/dL (6-20); CALCIUM 9.9 mg/dL (8.5-10.3); CARBON DIOXIDE - CO2 29 mmol/L (21-32); CHLORIDE 97 mmol/L (101-111); CREATININE 0.9 mg/dL (0.6-1.2); ETOH - ETHANOL < 5.0 mg/dL; GFR - MDRD 91 (>89); GLUCOSE 93 mg/dL (70-100); LIPASE 23 U/L (22-51); POTASSIUM 3.9 mmol/L (3.5-5.0); SALICYLATE < 6.0 mg/dL; SODIUM 138 mmol/L (135-145)
[2022-10-27 00:11] LABS: BAND NEUTROPHILS % (MANUAL) 1 %; EOSINOPHILS # (MANUAL) 0.8 10^3/uL (0-0.7); LYMPHOCYTES # (MANUAL) 3.3 10^3/uL (1.5-3.5); LYMPHOCYTES % (MANUAL) 32 %; MONOCYTES # (MANUAL) 0.7 10^3/uL (0.0-1.0); NEUTROPHILS # (MANUAL) 5.5 10^3/uL (1.5-6.6); RBC MORPHOLOGY (MULTIPLE) NORMAL APPEARANCE (NORMAL)
[2022-10-27 00:12] LABS: DIFFERENTIAL COMMENT MANUAL DIFFERENTIAL; PLATELET ESTIMATE, MANUAL NORMAL (130-450,000) (NORMAL); PLATELET MORPHOLOGY PLATELET CLUMPING (NORMAL); WBC MORPHOLOGY (MULTIPLE) NORMAL APPEARANCE (NORMAL)
[2022-10-27 07:41] VITALS: BP 104/90
== END 2022-10-27 08:40 | disposition home or self-care (01) ==
LOC: EDUNIT# → ED 22:55
DX: R41.82 Altered mental status, unspecified (principal)
CPT/HCPCS: 36415; 80053; 80307; 80320; 80329; 83690; 84443; 85025; 96360; 96361; 99284

== ENCOUNTER 2024-03-17 15:46 | Outpatient (CLI) | payer MEDICAID | END 2024-03-17 23:59 | disposition critical access hospital (66) | LOC: EMS 15:46 | DX: R53.1 Weakness (principal); R53.83 Other fatigue; R09.89 Other specified symptoms and signs involving the circulatory and respiratory systems; R60.0 Localized edema | CPT/HCPCS: A0425; A0429; A0999 ==

== ENCOUNTER 2024-03-17 16:14 | Emergency (ER) | payer MEDICAID ==
--- NOTE | 2024-03-17 16:32 | ED Physician Documentation ---
History of Present Illness - Stated complaint Stated Complaint: DIZZINESS - Chief complaint Chief Complaint: Neuro - Additonal information Additional information: 48-year-old male with history of Crohn's disease, type 2 diabetes presents [facility] department for dizziness. Patient has been here multiple times for dizziness he said that he was grocery shopping today and told someone that he was feeling dizzy and needing to sit down and they called 9 1. Patient is alert and oriented for myself he denies any chest pain any vision changes no nausea vomiting diarrhea no unilateral weakness or focal neurological defecits. Patient is a poor historian and can be quite tangential at times but denies any illicit drug use or alcohol use. PD PAST MEDICAL HISTORY - Past Medical History Cardiovascular: None Respiratory: None Endocrine/Autoimmune: Type 2 diabetes GI: Crohn's disease - Past Surgical History Past Surgical History: Yes General: Splenectomy - Present Medications Home Medications: Ambulatory Orders Medication Instructions Recorded Confirmed Doxepin [SINEquan] 75 mg PO QPM 02/09/21 03/17/24 cloNIDine [Catapres] 1 tab PO DAILY 02/09/21 03/17/24 - Allergies Allergies/Adverse Reactions: Allergies Allergy/AdvReac Type Severity Reaction Status Date / Time No Known Drug Allergies Allergy Verified 03/17/24 16:21 - Social History Does the pt smoke?: No Smoking Status: Never smoker Does the pt drink ETOH?: No Does the pt have substance abuse?: No - Immunizations Immunizations are current?: Yes - POLST Patient has POLST: No PD ED PE NORMAL - Vitals Vital signs reviewed: Yes - General General: Alert and oriented X 3, No acute distress, Well developed/nourished - HEENT HEENT: Atraumatic, PERRL, EOMI, Moist mucous membranes - Neck Neck: Supple, no meningeal sign - Cardiac Cardiac: RRR, No murmur - Respiratory Respiratory: No respiratory distress - Abdomen Abdomen: Normal bowel sounds, Soft, Non tender, No organomegaly - Back Back: No CVA TTP, No spinal TTP - Derm Derm: Normal color, Warm and dry, No rash - Extremities Extremities: No edema, No calf tenderness / cord - Neuro Neuro: Alert and oriented X 3, cloth colorer 2-12 intact, No motor deficit, No sensory deficit, Normal speech Eye Opening: Spontaneous Motor: Obeys Commands Verbal: Oriented GCS Score: 15 - Psych Psych: Normal mood, Normal affect Results - Vitals Vitals: Vital Signs - 24 hr 03/17/24 03/17/24 16:19 18:44 Temperature 36.5 C Heart Rate 80 57 L Respiratory 16 18 Rate Blood Pressure 123/76 97/65 O2 Saturation 99 98 Oxygen O2 Source Room air - EKG (time done) 1639 EKG releavant findings:: EKG personally interpreted by author of this note. Relevant findings are: Rate: Rate (enter#) (55) Rhythm: NSR [place]: Normal Intervals: Normal DC QRS: Normal Ischemia: Normal ST segments Computer interpretation: Agree with computer - Labs Labs: Laboratory Tests 03/17/24 03/17/24 03/17/24 17:13 17:13 17:13 WBC 8.3 RBC 4.58 L Hgb 13.0 L Hct 39.7 L MCV 86.7 MCH 28.4 MCHC 32.7 RDW 13.4 Plt Count 352 MPV 9.8 Neut # (Auto) 3.7 Lymph # (Auto) 3.3 [place] # (Auto) 0.6 Eos # (Auto) 0.6 Baso # (Auto) 0.1 Absolute Nucleated RBC 0.00 Nucleated RBC % 0.0 Sodium 138 Potassium 4.1 Chloride 102 Carbon Dioxide 31 Anion Gap 5.0 L BUN 23 H Creatinine 1.0 Estimated GFR (MDRD) 80 L Glucose 73 L Calcium 9.4 Magnesium 1.9 Total Bilirubin 0.6 AST 20 ALT 11 Alkaline Phosphatase 48 Total Protein 7.1 Albumin 4.4 Globulin 2.7 Albumin/Globulin Ratio 1.6 Lipase < 10 L TSH 1.80 PD Medical Decision Making - ED course ED course: 48-year-old male presents emergency department for dizziness. Patient has had multiple head CTs and multiple ER visits for similar complaints. Labs are complete for further evaluation. Mildly anemic, hemoglobin 13.0 this is actually higher than what it normally is. No electrolyte abnormalities BUN 23 glucose 73 GFR 80. He was given a liter of IV fluids here in the emergency department and this did somewhat alleviate the symptoms. Patient was told to follow-up with primary care provider for further evaluation outpatient and was taught how to establish care with one. Return precautions given patient is safer discharge at this point in time. Departure - Departure Disposition: 01 Home, Self Care Clinical Impression: Dehydration, Weakness Instructions: ED Dehydration Comments: Weakness or focal neurological deficits. weakness. Thank you for trusting us with your care is very important that you follow-up with a primary care provider soon as possible for further evaluation of these episodes of dizziness that you are experiencing. It could be related to dehydration we have given you a liter of IV fluids here in the emergency department to help with your dizziness we have checked labs and I am not seeing anything obvious that could be contributing to your dizzy symptoms as well as an EKG and again I am not seeing any obvious Abnormalities. Please call the [facility] first thing Wednesday to see if they are able to get you in for same-day visit therefore number [phone] the on-call group seeing same-day patients who do not have primary care providers. Forms: PCP List Discharge Date/Time: 03/17/24 18:44
[2024-03-17] MEDS: SODIUM CHLORIDE 0.9% 1,000 ML IV ONE (17:09)
[2024-03-17 17:37] LABS: BASOPHILS # (AUTO) 0.1 10^3/uL (0.0-0.1); BASOPHILS % (AUTO) 0.6 %; EOSINOPHILS # (AUTO) 0.6 10^3/uL (0.0-0.7); EOSINOPHILS % (AUTO) 7.7 %; HCT - HEMATOCRIT 39.7 % (42.0-52.0); LYMPHOCYTES # (AUTO) 3.3 10^3/uL (1.5-3.5); LYMPHOCYTES % (AUTO) 39.3 %; MEAN CORPUSCULAR HEMOGLOBIN 28.4 pg (27.0-31.0); MEAN CORPUSCULAR HGB CONC 32.7 g/dL (32.0-36.0); MEAN CORPUSCULAR VOLUME 86.7 fL (80.0-94.0); MEAN PLATELET VOLUME 9.8 fL (7.4-11.4); MONOCYTES # (AUTO) 0.6 10^3/uL (0.0-1.0); MONOCYTES % (AUTO) 7.4 %; NEUTROPHILS # (AUTO) 3.7 10^3/uL (1.5-6.6); NEUTROPHILS % (AUTO) 44.8 %; PLT - PLATELET COUNT 352 10^3/uL (130-450); RED BLOOD COUNT 4.58 10^6/uL (4.70-6.10); RED CELL DISTRIBUTION WIDTH 13.4 % (12.0-15.0); WHITE BLOOD COUNT 8.3 x10^3/uL (4.8-10.8)
[2024-03-17 17:48] LABS: ALBUMIN 4.4 g/dL (3.2-5.5); BILIRUBIN,TOTAL 0.6 mg/dL (0.2-1.0); CALCIUM 9.4 mg/dL (8.5-10.3); CARBON DIOXIDE - CO2 31 mmol/L (21-32); CHLORIDE 102 mmol/L (101-111); POTASSIUM 4.1 mmol/L (3.5-4.5); SODIUM 138 mmol/L (135-145)
[2024-03-17 17:52] LABS: ALBUMIN/GLOBULIN RATIO 1.6 (1.0-2.2); ALKALINE PHOSPHATASE 48 IU/L (42-121); ALT ALANINE AMINOTRANSFERASE 11 IU/L (10-60); AST ASPARTATE AMINOTRANSFERASE 20 IU/L (10-42); BUN - BLOOD UREA NITROGEN 23 mg/dL (6-20); GFR - MDRD 80 (>89); GLUCOSE 73 mg/dL (74-104); LIPASE < 10 U/L (11-82); TOTAL PROTEIN 7.1 g/dL (6.4-8.9)
[2024-03-17 18:04] LABS: MAGNESIUM 1.9 mg/dL (1.7-2.3)
[2024-03-17 18:53] VITALS: BP 97/65; O2SAT 98
== END 2024-03-17 18:44 | disposition home or self-care (01) ==
LOC: EDUNIT# → ED 16:14
DX: E86.0 Dehydration (principal); R53.1 Weakness; E11.9 Type 2 diabetes mellitus without complications; K50.90 Crohn's disease, unspecified, without complications; Z79.899 Other long term (current) drug therapy
CPT/HCPCS: 36415; 80053; 83690; 83735; 84443; 85025; 93005; 96360; 99284

== ENCOUNTER 2024-03-24 10:56 | Emergency (ER) | payer MEDICAID ==
[2024-03-24] MEDS: SODIUM CHLORIDE 0.9% 1,000 ML IV STA (12:49)
[2024-03-24 12:53] LABS: BASOPHILS % (AUTO) 0.3 %; EOSINOPHILS % (AUTO) 0.3 %; HCT - HEMATOCRIT 43.9 % (42.0-52.0); HGB - HEMOGLOBIN 13.5 g/dL (14.0-18.0); LYMPHOCYTES # (AUTO) 0.9 10^3/uL (1.5-3.5); MEAN CORPUSCULAR HEMOGLOBIN 27.4 pg (27.0-31.0); MEAN CORPUSCULAR HGB CONC 30.8 g/dL (32.0-36.0); MEAN CORPUSCULAR VOLUME 89.2 fL (80.0-94.0); MEAN PLATELET VOLUME 9.8 fL (7.4-11.4); MONOCYTES # (AUTO) 0.6 10^3/uL (0.0-1.0); MONOCYTES % (AUTO) 5.1 %; NEUTROPHILS % (AUTO) 86.1 %; PLT - PLATELET COUNT 332 10^3/uL (130-450); RED BLOOD COUNT 4.92 10^6/uL (4.70-6.10); RED CELL DISTRIBUTION WIDTH 13.6 % (12.0-15.0); WHITE BLOOD COUNT 11.6 x10^3/uL (4.8-10.8)
[2024-03-24 13:08] LABS: ALBUMIN 4.6 g/dL (3.2-5.5); ALBUMIN/GLOBULIN RATIO 1.5 (1.0-2.2); ALKALINE PHOSPHATASE 61 IU/L (42-121); ALT ALANINE AMINOTRANSFERASE 13 IU/L (10-60); AST ASPARTATE AMINOTRANSFERASE 22 IU/L (10-42); BILIRUBIN,TOTAL 0.3 mg/dL (0.2-1.0); BUN - BLOOD UREA NITROGEN 9 mg/dL (6-20); CALCIUM 9.9 mg/dL (8.5-10.3); CARBON DIOXIDE - CO2 31 mmol/L (21-32); CHLORIDE 100 mmol/L (101-111); CREATININE 0.9 mg/dL (0.6-1.3); GFR - MDRD 91 (>89); GLUCOSE 101 mg/dL (74-104); LIPASE < 10 U/L (11-82); POTASSIUM 4.1 mmol/L (3.5-4.5); SODIUM 137 mmol/L (135-145); TOTAL PROTEIN 7.7 g/dL (6.4-8.9)
--- NOTE | 2024-03-24 13:56 | ED Physician Documentation ---
History of Present Illness - Stated complaint Stated Complaint: - Chief complaint Chief Complaint: General - History obtained from History obtained from: Patient, Other (Records from [facility]) - Additonal information Additional information: Patient is a 48-year-old male on chronic methadone presenting for evaluation of generalized weakness. He has been feeling unwell for the past week and feeling less sharp than he usually is. This was also noted by staff at his methadone clinic and he was directed to the emergency department at [facility] on March 21 for evaluation of this. Workup included a CT head, labs, urine analysis and ultimately patient was diagnosed with a UTI and dehydration. He was given a prescription for antibiotics but did not start this until 2 days a go. He called the methadone clinic today and reported to them that he still was not feeling back to his normal self and they directed him back to the emergency department for evaluation. Patient denies any recent head injury or trauma. Denies recent drug use. Denies alcohol use today. Was able to bring himself to the emergency department today along with his service dog without difficulty. N o vomiting or diarrhea. Denies chest pain, cough or trouble breathing.Reports he has been taking his antibiotic for the past 2 days. Review of Systems Constitutional: denies: Fever Cardiac: denies: Chest pain / pressure Respiratory: denies: Dyspnea GI: denies: Abdominal Pain, Vomiting Neurologic: reports: Generalized weakness. denies: Headache PD PAST MEDICAL HISTORY - Past Medical History Past Medical History: Yes Cardiovascular: None Respiratory: None Endocrine/Autoimmune: Type 2 diabetes GI: Crohn's disease - Past Surgical History Past Surgical History: Yes General: Splenectomy - Present Medications Home Medications: Ambulatory Orders Medication Instructions Recorded Confirmed Doxepin [SINEquan] 300 mg PO QPM 02/09/21 03/24/24 Methadone HCl 190 mg PO DAILY 03/24/24 03/24/24 - Allergies Allergies/Adverse Reactions: Allergies Allergy/AdvReac Type Severity Reaction Status Date / Time No Known Drug Allergies Allergy Verified 03/24/24 11:16 - Social History Does the pt smoke?: No Smoking Status: Never smoker Does the pt drink ETOH?: No Does the pt have substance abuse?: No - Immunizations Immunizations are current?: Yes - POLST Patient has POLST: No PD ED PE NORMAL - General General: Alert and oriented X 3, No acute distress, Well developed/nourished - HEENT HEENT: Atraumatic, PERRL, Pharynx benign - Neck Neck: Supple, no meningeal sign - Cardiac Cardiac: RRR, Strong equal pulses - Respiratory Respiratory: No respiratory distress, Clear bilaterally - Abdomen Abdomen: Normal bowel sounds, Soft, Non tender, Non distended - Derm Derm: Warm and dry - Neuro Neuro: Alert and oriented X 3, No motor deficit, Normal speech Results - Vitals Vitals: Vital Signs - 24 hr 03/24/24 03/24/24 03/24/24 11:00 13:31 14:29 Temperature 36.9 C Heart Rate 110 H 100 77 Respiratory 18 12 16 Rate Blood Pressure 147/96 H 155/81 H 153/88 H O2 Saturation 98 97 98 Oxygen O2 Source Room air - Labs Labs: Laboratory Tests 03/24/24 03/24/24 12:48 12:48 WBC 11.6 H RBC 4.92 Hgb 13.5 L Hct 43.9 MCV 89.2 MCH 27.4 MCHC 30.8 L RDW 13.6 Plt Count 332 MPV 9.8 Neut # (Auto) 10.0 H Lymph # (Auto) 0.9 L [place] # (Auto) 0.6 Eos # (Auto) 0.0 Baso # (Auto) 0.0 Absolute Nucleated RBC 0.00 Nucleated RBC % 0.0 Sodium 137 Potassium 4.1 Chloride 100 L Carbon Dioxide 31 Anion Gap 6.0 BUN 9 Creatinine 0.9 Estimated GFR (MDRD) 91 Glucose 101 Calcium 9.9 Total Bilirubin 0.3 AST 22 ALT 13 Alkaline Phosphatase 61 Total Protein 7.7 Albumin 4.6 Globulin 3.1 Albumin/Globulin Ratio 1.5 Lipase < 10 L PD Medical Decision Making - ED course Complexity details: reviewed results, d/w patient ED course: Patient is a 48-year-old male presenting for evaluation of generalized weakness in the setting of recent diagnosis of UTI and dehydration. Initial heart rate was elevated but this quickly improved. CBC and chemistries were reviewed. WBC 11,000. Patient does not appear septic. Feels better after IV fluids. Outpatient labs from [facility] were reviewed. Patient has been taking an antibiotic for UTI. Patient is alert and oriented x 4 here and able to recall recent events and also give me the story of being at [facility] as well as calls to the clinic and why he was directed to the ER today. He does not appear altered. He has an age is 0 and he has no symptoms to suggest a stroke. I did confirm his methadone dose with the clinic and they are currently past hours where they are giving out methadone so his dose was given to him today.Patient does not appear altered and is nontoxic in appearance. Heart rate improved with fluids and time in the ER. Patient has benign abdominal exam. Counseled on need to continue with his antibiotics, stay hydrated and get rest. Patient also advised on concerning symptoms to return for. 1354 - Confirmed Methadone dose with Jonathan SIMS at [facility] - Methadone 190mg daily. Last dose 2 days ago. Departure - Departure Disposition: Home, Self Care Clinical Impression: Weakness Condition: Stable Instructions: ED Weakness UKO Comments: Please continue to take your antibiotic and stay hydrated. Get plenty of rest. Please continue to follow-up at the [facility] for your methadone dosing and for follow-up with your primary care provider. You were given your dose of methadone here today. Return to the ER if you have any worsening symptoms such as feel more weak, fever, development of pain or any other concerns. Forms: PCP List Discharge Date/Time: 03/24/24 14:30
[2024-03-24] MEDS: METHADONE 50 MG/5 ML ORAL SYRINGE PO STA (14:16)
[2024-03-24 14:33] VITALS: BP 153/88; O2SAT 98
== END 2024-03-24 14:30 | disposition home or self-care (01) ==
LOC: ED 10:56
DX: R53.1 Weakness (principal); E11.9 Type 2 diabetes mellitus without complications; K50.90 Crohn's disease, unspecified, without complications; Z79.899 Other long term (current) drug therapy
CPT/HCPCS: 36415; 80053; 83690; 85025; 96360; 99283

== ENCOUNTER 2024-04-05 10:04 | Outpatient (CLI) | payer MEDICAID | END 2024-04-05 23:59 | disposition critical access hospital (66) | LOC: EMS 10:04 | DX: R11.2 Nausea with vomiting, unspecified (principal); R53.81 Other malaise | CPT/HCPCS: A0425; A0429; A0999 ==

== ENCOUNTER 2024-04-05 10:34 | Emergency (ER) | payer MEDICAID ==
[2024-04-05 11:03] LABS: BASOPHILS % (AUTO) 0.2 %; HCT - HEMATOCRIT 43.4 % (42.0-52.0); HGB - HEMOGLOBIN 13.8 g/dL (14.0-18.0); LYMPHOCYTES # (AUTO) 0.7 10^3/uL (1.5-3.5); LYMPHOCYTES % (AUTO) 5.7 %; MEAN CORPUSCULAR HEMOGLOBIN 27.5 pg (27.0-31.0); MEAN CORPUSCULAR HGB CONC 31.8 g/dL (32.0-36.0); MEAN CORPUSCULAR VOLUME 86.6 fL (80.0-94.0); MONOCYTES # (AUTO) 0.3 10^3/uL (0.0-1.0); MONOCYTES % (AUTO) 2.1 %; NEUTROPHILS # (AUTO) 11.4 10^3/uL (1.5-6.6); NEUTROPHILS % (AUTO) 91.8 %; PLT - PLATELET COUNT 423 10^3/uL (130-450); RED BLOOD COUNT 5.01 10^6/uL (4.70-6.10); RED CELL DISTRIBUTION WIDTH 13.3 % (12.0-15.0); WHITE BLOOD COUNT 12.4 x10^3/uL (4.8-10.8)
[2024-04-05 11:18] LABS: ALBUMIN 4.7 g/dL (3.2-5.5); ALBUMIN/GLOBULIN RATIO 1.5 (1.0-2.2); ALKALINE PHOSPHATASE 64 IU/L (42-121); ALT ALANINE AMINOTRANSFERASE 9 IU/L (10-60); AST ASPARTATE AMINOTRANSFERASE 17 IU/L (10-42); BILIRUBIN,TOTAL 0.4 mg/dL (0.2-1.0); BUN - BLOOD UREA NITROGEN 19 mg/dL (6-20); CALCIUM 9.9 mg/dL (8.5-10.3); CARBON DIOXIDE - CO2 30 mmol/L (21-32); CHLORIDE 96 mmol/L (101-111); CREATININE 0.8 mg/dL (0.6-1.3); GFR - MDRD 104 (>89); GLUCOSE 157 mg/dL (74-104); POTASSIUM 4.6 mmol/L (3.5-4.5); SODIUM 132 mmol/L (135-145); TOTAL PROTEIN 7.9 g/dL (6.4-8.9)
[2024-04-05 11:21] LABS: LIPASE < 10 U/L (11-82)
--- NOTE | 2024-04-05 12:15 | ED Physician Documentation ---
PD HPI NVD - Stated complaint Stated Complaint: N/V - Chief complaint Chief Complaint: Abd Pain - History obtained from History obtained from: Patient - History of Present Illness Timing - onset: Last night (shortly after eating crab for dinner. Was fresh caught and cooked, eaten along with several other people whom are not sick.) Timing - duration: Hours (12-15) Timing - details: Abrupt onset, Still present Associated symptoms: Abdominal pain (cramping pain mainly lower mid to left.). No: Fever Review of Systems GI: reports: Abdominal Pain, Nausea, Vomiting, Hematemesis (noted small wisp of red blood with vomiting this morning.). denies: Abdominal Swelling, Constipation, Bloody / black stool Neurologic: reports: Generalized weakness. denies: Focal weakness, Numbness, Near syncope PD PAST MEDICAL HISTORY - Past Medical History Past Medical History: Yes Cardiovascular: None Respiratory: None Endocrine/Autoimmune: Type 2 diabetes GI: Crohn's disease - Past Surgical History Past Surgical History: Yes General: Splenectomy - Present Medications Home Medications: Ambulatory Orders Medication Instructions Recorded Confirmed Doxepin [SINEquan] 300 mg PO QPM 02/09/04/05/24 Diphenoxylate/Atropine [Lomotil] 1 each PO QID PRN #12 tablet 04/05/24 Methadone HCl 190 mg PO DAILY 04/05/24 04/05/24 Ondansetron Odt [Zofran] 4 mg TL Q6H PRN #10 tablet 04/05/24 dexAMETHasone [Decadron] 4 mg PO DAILY #5 tablet 04/05/24 - Allergies Allergies/Adverse Reactions: Allergies Allergy/AdvReac Type Severity Reaction Status Date / Time No Known Drug Allergies Allergy Verified 04/05/24 10:37 - Social History Does the pt smoke?: No Smoking Status: Never smoker Does the pt drink ETOH?: No Does the pt have substance abuse?: No - Immunizations Immunizations are current?: Yes - POLST Patient has POLST: No PD ED PE NORMAL - Vitals Vital signs reviewed: Yes - General General: Alert and oriented X 3, Well developed/nourished, Other (appears uncomfortable and holding emesis bag. ) - Cardiac Cardiac: RRR, No murmur - Respiratory Respiratory: No respiratory distress, Clear bilaterally - Abdomen Abdomen: Normal bowel sounds, Soft, Non distended, Other (tender mid abd to left abdomen. Not tender RUQ. ) Results - Vitals Vitals: Oxygen O2 Source Room air - Labs Labs: Laboratory Tests 04/05/24 04/05/24 10:59 10:59 WBC 12.4 H RBC 5.01 Hgb 13.8 L Hct 43.4 MCV 86.6 MCH 27.5 MCHC 31.8 L RDW 13.3 Plt Count 423 MPV 9.0 Neut # (Auto) 11.4 H Lymph # (Auto) 0.7 L [place] # (Auto) 0.3 Eos # (Auto) 0.0 Baso # (Auto) 0.0 Absolute Nucleated RBC 0.00 Nucleated RBC % 0.0 Sodium 132 L Potassium 4.6 H Chloride 96 L Carbon Dioxide 30 Anion Gap 6.0 BUN 19 Creatinine 0.8 Estimated GFR (MDRD) 104 Glucose 157 H Calcium 9.9 Total Bilirubin 0.4 AST 17 ALT 9 L Alkaline Phosphatase 64 Total Protein 7.9 Albumin 4.7 Globulin 3.2 Albumin/Globulin Ratio 1.5 Lipase < 10 L - Rads (name of study) ad/pelvic CT Relevant Findings:: Prelim report reviewed (suspicious for descending and sigmoid colitis. No signs of appendicitis. ), EMP independent interpretation of test PD Medical Decision Making - ED course Complexity details: reviewed results (some colitis at descendig and sigmoid colon. This could be c/w flare of Crohns, perhaps viral GE given the N/V. He did develop some diarrhea whil ehere in ED. ), re-evaluated patient (feeling improved with IV fluids and antiemetics with Toradl and Hydromorphine for pains. Taking fluids PO. Feels able to try going home after few hours, bags fluid.), considered differential, d/w patient Reviewed Lab Results: LFTs and lipase are normal. WBC slightly up at 12K but could be adrenaline response of voitimg/ill rather than infectious. Might give credence to firal GE. Departure - Departure Disposition: 01 Home, Self Care Clinical Impression: Nausea vomiting and diarrhea, Gastroenteritis, Colitis, History of Crohn's disease Clinical Impression: (Ruled Out): Appendicitis Condition: Stable Record reviewed to determine appropriate education?: Yes Instructions: ED Food Poison Or Gastroenteritis Prescriptions: dexAMETHasone [Decadron] 4 mg PO DAILY #5 tablet Diphenoxylate/Atropine [Lomotil] 1 each PO QID PRN #12 tablet PRN Reason: Diarrhea Ondansetron Odt [Zofran] 4 mg TL Q6H PRN #10 tablet PRN Reason: Nausea / Vomiting Comments: This seems likely to be either food poisoning/food related from the crab or viral stomach flu (gastroenteritis). On your CT scan no supporting evidence for appendicitis. There is some inflammation of the descending and sigmoid colon that could represent a flareup of your Crohn's related to the stomach flu or co uld be just from the stomach flu itself. It is good that you are feeling better. We did send you home with some nausea medicine every 6 hours if needed. I wrote a prescription for some more ondanse lesia/Zofran if needed for nausea as well as Lomotil if needed for diarrhea. I would suggest Decadron steroid daily for 5 more days with the likelihood of some flareup of your Crohn's. Forms: PCP List Discharge Date/Time: 04/05/24 18:53
[2024-04-05] MEDS ORDERED: iohexoL-300 100 ML VIAL ONE (13:11)
[2024-04-05] MEDS: SODIUM CHLORIDE 0.9% 1,000 ML IV STA ×3 (15:01→17:18)
[2024-04-05] MEDS: KETOROLAC 15 MG/ML VIAL IVP STA (15:01)
[2024-04-05] MEDS: DROPERIDOL 5 MG/2 ML VIAL IVP STA (15:02)
--- NOTE | 2024-04-05 15:09 | CONSULTATION NOTE ---
Consultation Report: Called for assist with IV start, history of difficult start and multiple failed attempts this visit. 20ga IV placed at R FA with ultrasound attempt x1. Easily aspirates and flushes with cap. IVFs to line. Patient tolerated the procedure without complaint or complication. RN notified of new line.
--- NOTE | 2024-04-05 15:57 | CT Report ---
PROCEDURE: Abdomen/Pelvis W INDICATIONS: lower abd pain, vomiting; concern appy CONTRAST: Omni 300 100ml TECHNIQUE: After the administration of intravenous contrast, a CT scan of the abdomen and pelvis was performed. Images were recorded and evaluated at appropriate window settings. Reformats: coronal and sagittal. F or radiation dose reduction, the following was used: automated exposure control, adjustment of mA and /or kV according to patient size. COMPARISON: None. FINDINGS: Image quality: Diagnostic. Lower chest: Unremarkable. Liver: No solid mass. Gallbladder: No radiopaque stones or wall thickening. Biliary tree: No intrahepatic or extrahepatic dilation, accounting for age. Spleen: Possible 2 splenule's are noted in left upper quadrant. No normal spleen is identified.. Pancreas: No pancreatic ductal dilation. Adrenals: No adrenal nodule. Kidneys and ureters: No hydronephrosis. No renal cystic lesion which requires follow up. No solid mas s. Stomach, bowel and peritoneum: No gastric or small bowel dilation. No abnormal wall thickening. No pa thologic free fluid. Moderate fecal stasis throughout the colon is seen. Distal descending colon and sigmoid colon wall thickening is noted without significant pericolonic fat stranding. Appendix is not definitively identified. No secondary CT signs of acute appendicitis is seen in right lower quadrant abdomen. Lymph nodes: No central or retroperitoneal adenopathy. Vessels: No infrarenal aortic aneurysm. Patent portal vein. PELVIS Reproductive organs: Unremarkable. Bladder: No abnormal wall thickening, accounting for underdistention. Pelvic lymph nodes: No pelvic adenopathy by size criteria. Bones: No aggressive osseous abnormality. Other: No significant ventral or inguinal hernia. IMPRESSION: 1. Finding is concerning for distending and sigmoid colitis. No secondary CT signs of acute appendici tis. No bowel obstruction. Moderate constipation. No free fluid of free air. 2. Nonvisualization of normal spleen with likely 2 splenule seen in left upper quadrant suggest clini clarissa correlation. Reviewed by: Isai Henning MD on 04/05/2024 3:55 PM PDT Approved by: Isai Henning MD on 04/05/2024 3:55 PM PDT Station ID: [id number]
[2024-04-05] MEDS: METHADONE 50 MG/5 ML ORAL SYRINGE PO STA (16:00)
[2024-04-05] MEDS: iohexoL-300 100 ML VIAL IVP ONE (16:39)
[2024-04-05] MEDS ORDERED: DEXAMETHASONE 10 MG/ML VIAL IVP STA (18:07)
[2024-04-05] MEDS ORDERED: ONDANSETRON ODT 4 MG Prepack 2 TL PRN (18:07)
[2024-04-05 18:55] VITALS: BP 156/83; O2SAT 99
== END 2024-04-05 18:53 | disposition home or self-care (01) ==
LOC: EDSEX → EDUNIT# → ED 10:34
DX: K52.9 Noninfective gastroenteritis and colitis, unspecified (principal); K50.90 Crohn's disease, unspecified, without complications; E11.9 Type 2 diabetes mellitus without complications
CPT/HCPCS: 36415; 74177; 80053; 83690; 85025; 96361; 96374; 96375; 99284; Q9967

== ENCOUNTER 2024-04-12 13:10 | Emergency (ER) | payer MEDICAID ==
--- NOTE | 2024-04-12 15:24 | ED Physician Documentation ---
History of Present Illness - Stated complaint Stated Complaint: MED REFILL - Chief complaint Chief Complaint: General - History obtained from History obtained from: Patient (The bus to go to the methadone clinic was late today and missed his appointment. Request his methadone dosing which is 190 mg) PD PAST MEDICAL HISTORY - Past Medical History Past Medical History: Yes Cardiovascular: None Respiratory: None Endocrine/Autoimmune: Type 2 diabetes GI: Crohn's disease - Past Surgical History Past Surgical History: Yes General: Splenectomy - Present Medications Home Medications: Ambulatory Orders Medication Instructions Recorded Confirmed Doxepin [SINEquan] 300 mg PO QPM 02/09/21 04/12/24 Methadone HCl 190 mg PO DAILY 04/05/24 04/12/24 - Allergies Allergies/Adverse Reactions: Allergies Allergy/AdvReac Type Severity Reaction Status Date / Time No Known Drug Allergies Allergy Verified 04/12/24 13:19 - Social History Does the pt smoke?: No Smoking Status: Never smoker Does the pt drink ETOH?: No Does the pt have substance abuse?: No - Immunizations Immunizations are current?: Yes - POLST Patient has POLST: No Results - Vitals Vitals: Vital Signs - 24 hr 04/12/24 04/12/24 13:19 16:36 Temperature 36.8 C Heart Rate 90 78 Respiratory 16 18 Rate Blood Pressure 140/90 H 148/86 H O2 Saturation 99 100 Oxygen O2 Source Room air PD Medical Decision Making - ED course ED course: He was administered his dose of methadone here but admonished that this would be a rare phenomenon. This is his third visit receiving methadone in the last few months here. Departure - Departure Disposition: 01 Home, Self Care Clinical Impression: Narcotic dependence Condition: Good Record reviewed to determine appropriate education?: Yes Comments: As discussed, we will only very occasionally treat you with methadone in the emergency department so you may want to get an earlier bus going forward as we will not routinely give the methadone. Forms: PCP List Discharge Date/Time: 04/12/24 15:55
[2024-04-12] MEDS: METHADONE 50 MG/5 ML ORAL SYRINGE PO ONE (15:53)
[2024-04-12 16:45] VITALS: BP 148/86; O2SAT 100
== END 2024-04-12 15:55 | disposition home or self-care (01) ==
LOC: ED 13:10
DX: Z76.0 Encounter for issue of repeat prescription (principal); F11.20 Opioid dependence, uncomplicated; E11.9 Type 2 diabetes mellitus without complications; K50.90 Crohn's disease, unspecified, without complications
CPT/HCPCS: 99283